=== PATIENT | male | born 1970 | race Caucasian/White ===

== ENCOUNTER 2016-09-26 13:54 | Emergency (ER) | payer OTHER ==
[2016-09-26 13:59] VITALS: RESP 18
[2016-09-26] MEDS ORDERED: ONDANSETRON 4 MG/2 ML VIAL IVP ONE (15:01)
[2016-09-26] MEDS ORDERED: NS 1,000 ML IV ONE ×2 (15:01)
[2016-09-26 15:07] LABS: % IMMATURE GRANULYOCYTES 0.2 % (0.0-1.1); ABSOLUTE IMMATURE GRANULOCYTES 0.01 10^3/uL (0.00-0.10); ADD DIFF? NO; ADD MORPH? NO; ADD SCAN? NO; ATYPICAL LYMPHOCYTE FLAG 0 (0-99); FRAGMENT RBC FLAG 0 (0-99); HEMOGLOBIN 15.8 g/dL (13.7-17.5); LEFT SHIFT FLG 0 (0-99); LIPEMIA HEMOLYSIS FLAG 90 (0-99); MEAN CELL HEMOGLOBIN 33.5 pg (27.9-34.1); MEAN CELL HEMOGLOBIN CONCENTR. 35.9 g/dL (32.4-36.7); MEAN CELL VOLUME 93.4 fL (81.5-99.8); MEAN PLATELET VOLUME 9.5 fL (8.7-11.7); PLATELET CLUMPS FLAG 0 (0-99); PLATELET COUNT 158 10^3/uL (150-400); RED BLOOD CELL COUNT 4.71 10^6/uL (4.40-6.38)
--- NOTE | 2016-09-26 15:08 | EDPHY ---
H & P Time Seen by Provider: 09/26/16 14:39 HPI/ROS: CHIEF COMPLAINT: Nausea and fever HISTORY OF PRESENT ILLNESS: This 46-year-old man presents with nausea fever and some lower abdominal cramping. Symptoms started yesterday at 7:00 p.m. with fever and chills. Today he has not had vomiting or diarrhea but has had pretty much nothing to eat because he has nausea. Pain radiates to his mid low back but is not associated with urinary symptoms. No cough or shortness of breath. No headache or neck pain. Recent travel to [place] with 2 tick bites but no overseas travel. REVIEW OF SYSTEMS: Eye: no change in vision ENT: no sore throat Cardiac: no chest pain or syncope Pulmonary: no cough or SOB Abdomen: HPI Musculoskeletal: no back pain Skin: no rash Neuro: no headache Constitutional: HPI : no urinary symptoms A comprehensive 10 point review of systems is otherwise negative aside from elements mentioned in the history of present illness. PAST MEDICAL HISTORY: Negative Social history: No foreign travel or IV drugs General Appearance: Alert and conversant, cooperative. Eyes: No scleral icterus. ENT, Mouth: Normal mucous membranes. Respiratory: Normal respiratory effort, breath sounds equal, lungs are clear to auscultation. Cardiovascular: Regular rate and rhythm. Gastrointestinal: Abdomen is soft and non tender. No rebound or guarding, normal bowel sounds. Neurological: Alert and oriented x3. Normally conversant. Face symmetric, normal movement and sensation in all extremities. Skin: Warm and dry, no rashes. Scattered bug bites in the lower extremities but no evidence of cellulitis. Musculoskeletal: No peripheral edema and no joint swelling. Normal range of motion of the neck, supple, no meningeal signs. Psychiatric: Not agitated. Emergency Department course/MDM: Normal saline 2 L IV and Zofran 4 mg IV for nausea. He had a temperature of a 101.8degrees at [facility]. Laboratory, urinalysis. 1620: Re-evaluated, labs and Infectious Disease recommendation discussed, abdomen is soft and nontender at this time. Plan to discharge if takes p.o. Discussed in detail with Dr. Johnny Britt recommends no empiric treatment for any type of tick borne diseases. Negative urinalysis. Does not have signs of meningitis and I think serious bacterial infection is unlikely. Not tender over McBurney's point. Liver function tests noted, can be recheck. Smoking Status: Never smoked Constitutional: Initial Vital Signs Temperature (C) 37.5 C 09/26/16 13:55 Heart Rate 92 09/26/16 13:55 Respiratory Rate 18 09/26/16 13:55 Blood Pressure 129/101 H 09/26/16 13:55 O2 Sat (%) 96 09/26/16 13:55 O2 Delivery Mode Room Air Allergies/Adverse Reactions: acetaminophen [From Darvocet-N] Allergy (Mild, Verified 09/26/16 13:59) felt feverish propoxyphene [From Darvocet-N] Allergy (Mild, Verified 09/26/16 13:59) felt feverish Home Medications: Medication Instructions Recorded Ondansetron Odt [Zofran Odt] 4 mg PO Q4PRN #6 tab 09/26/16 Medical Decision Making Consult/Admit Bed Type: [place] [address] - Data Points Laboratory Results: Laboratory Results 09/26/16 14:45 09/26/16 14:45 09/26/16 09/26/16 09/26/16 16:10 14:45 14:45 WBC 4.09 10^3/uL 10^3/uL (3.80-9.50) RBC 4.71 10^6/uL 10^6/uL (4.40-6.38) Hgb 15.8 g/dL g/dL (13.7-17.5) Hct 44.0 % % (40.0-51.0) MCV 93.4 fL fL (81.5-99.8) MCH 33.5 pg pg (27.9-34.1) MCHC 35.9 g/dL g/dL (32.4-36.7) RDW 12.0 % % (11.5-15.2) Plt Count 158 10^3/uL 10^3/uL (150-400) MPV 9.5 fL fL (8.7-11.7) Neut % (Auto) 77.5 % H % (39.3-74.2) Lymph % (Auto) 13.0 % L % (15.0-45.0) King % (Auto) 8.6 % % (4.5-13.0) Eos % (Auto) 0.0 % L % (0.6-7.6) Baso % (Auto) 0.7 % % (0.3-1.7) Nucleat RBC Rel Count 0.0 % % (0.0-0.2) Absolute Neuts (auto) 3.17 10^3/uL 10^3/uL (1.70-6.50) Absolute Lymphs (auto) 0.53 10^3/uL L 10^3/uL (1.00-3.00) Absolute Monos (auto) 0.35 10^3/uL 10^3/uL (0.30-0.80) Absolute Eos (auto) 0.00 10^3/uL L 10^3/uL (0.03-0.40) Absolute Basos (auto) 0.03 10^3/uL 10^3/uL (0.02-0.10) Absolute Nucleated RBC 0.00 10^3/uL 10^3/uL (0-0.01) Immature Gran % 0.2 % % (0.0-1.1) Immature Gran # 0.01 10^3/uL 10^3/uL (0.00-0.10) Sodium 133 mEq/L L mEq/L (134-144) Potassium 4.0 mEq/L mEq/L (3.5-5.2) Chloride 101 mEq/L mEq/L (97-110) Carbon Dioxide 22 mEq/l mEq/l (22-31) Anion Gap 10 mEq/L mEq/L (8-16) BUN 12 mg/dL mg/dL (7-23) Creatinine 1.0 mg/dL mg/dL (0.7-1.3) Estimated GFR > 60 Glucose 94 mg/dL mg/dL (70-100) Calcium 9.6 mg/dL mg/dL (8.5-10.4) Total Bilirubin 1.0 mg/dL mg/dL (0.1-1.4) Conjugated Bilirubin 0.4 mg/dL mg/dL (0.0-0.5) Unconjugated Bilirubin 0.6 mg/dL mg/dL (0.0-1.1) AST 92 IU/L H IU/L (17-59) ALT 107 IU/L H IU/L (21-72) Alkaline Phosphatase 96 IU/L IU/L (38-126) Total Protein 7.2 g/dL g/dL (6.3-8.2) Albumin 4.3 g/dL g/dL (3.5-5.0) Lipase 113.0 IU/L IU/L (23-300) Urine Color YELLOW Urine Appearance CLEAR Urine pH 7.0 (5.0-7.5) Ur Specific [place] 1.021 (1.002-1.030) Urine Protein 1+ H (NEGATIVE) Urine Ketones 1+ H (NEGATIVE) Urine Blood NEGATIVE (NEGATIVE) Urine Nitrate NEGATIVE (NEGATIVE) Urine Bilirubin NEGATIVE (NEGATIVE) Urine Urobilinogen NEGATIVE EU EU (0.2-1.0) Ur Leukocyte Esterase NEGATIVE (NEGATIVE) Urine RBC 1-3 /hpf /hpf (0-3) Urine WBC 1-3 /hpf /hpf (0-3) Ur Epithelial Cells NONE SEEN /lpf /lpf (NONE-1+) Urine Mucus TRACE /lpf /lpf (NONE-1+) Urine Glucose NEGATIVE (NEGATIVE) Medications Given: Discontinued Medications Sodium Chloride (Ns) 1,000 mls @ 0 mls/hr IV ONCE ONE; Wide Open PRN Reason: Protocol Stop: 09/26/16 15:02 Last Admin: 09/26/16 14:40 Dose: 1,000 mls Sodium Chloride (Ns) 1,000 mls @ 0 mls/hr IV ONCE ONE; Wide Open PRN Reason: Protocol Stop: 09/26/16 15:02 Last Admin: 09/26/16 15:35 Dose: 1,000 mls Ibuprofen (Motrin) 600 mg PO EDNOW ONE Stop: 09/26/16 16:25 Last Admin: 09/26/16 17:12 Dose: Not Given Ondansetron HCl (Zofran) 4 mg IVP EDNOW ONE Stop: 09/26/16 15:02 Last Admin: 09/26/16 15:36 Dose: 4 mg Departure - Departure Disposition: Home, Routine, Self-Care Clinical Impression: Viral syndrome, Abdominal pain Condition: Good Instructions: Dehydration (ED), Viral Syndrome (ED) Additional Instructions: Primary care referrals given including Dr. Edmond who was on-call for the ED today. You need to return to the emergency department immediately if you develop worsening or severe pain, fever, vomiting or you are not completely better in 8- 12 hours. Referrals: Aida Edmond DO [Doctor of Osteopathy] - As per Instructions Rene Naik MD [[facility] Primary Care Provider] - As per Instructions Prescriptions: Ondansetron Odt [Zofran Odt] 4 mg PO Q4PRN #6 tab
[2016-09-26 15:14] LABS: ALBUMIN 4.3 g/dL (3.5-5.0); ALKALINE PHOSPHATASE 96 IU/L (38-126); ANION GAP 10 mEq/L (8-16); ASPARTATE AMINOTRANSFERASE 92 IU/L (17-59); BILIRUBIN-UNCONJUGATED 0.6 mg/dL (0.0-1.1); CALCIUM 9.6 mg/dL (8.5-10.4); CARBON DIOXIDE 22 mEq/l (22-31); CHLORIDE 101 mEq/L (97-110); GLOMERULAR FILTRATION RATE > 60; GLUCOSE 94 mg/dL (70-100); SODIUM 133 mEq/L (134-144); TOTAL PROTEIN 7.2 g/dL (6.3-8.2)
[2016-09-26 15:15] LABS: ALANINE AMINOTRANSFERASE 107 IU/L (21-72); BILIRUBIN-CONJUGATED 0.4 mg/dL (0.0-0.5)
[2016-09-26] MEDS ORDERED: IBUPROFEN 600 MG TAB PO ONE (16:24)
[2016-09-26 16:29] LABS: COLOR YELLOW; LEUKOCYTE ESTERASE,URINE NEGATIVE (NEGATIVE); NITRITE,URINE NEGATIVE (NEGATIVE)
[2016-09-26 16:32] LABS: MUCUS TRACE /lpf (NONE-1+)
[2016-09-26 16:58] VITALS: BP 131/87; PULSE 80; TEMP 100.4; O2SAT 95
== END 2016-09-26 16:58 | disposition home or self-care (01) ==
DX: R10.9 Unspecified abdominal pain (principal); B34.9 Viral infection, unspecified
CPT/HCPCS: 96374; J2405

== ENCOUNTER 2016-10-14 08:04 | Emergency (ER) | payer OTHER ==
--- NOTE | 2016-10-14 08:24 | EDPHY ---
HPI/HX/ROS/PE/MDM Narrative: CHIEF COMPLAINT: Possible allergic reaction. HISTORY OF PRESENT ILLNESS: This patient is a 46 year old male arriving via EMS complaining of a possible allergic reaction of unknown etiology onset this morning during a run. He states that near the end of his run, his hand began to itch badly. Upon returning home, he states he took a warm shower and the itching spread to his back, legs, and abdomen, and he began to fee lightheaded. He reports he felt as though he had a "knot in his throat", and may have passed out on his bed, and when he awoke, he was increasingly lightheaded and felt as though the room was spinning. At this point, he states he called EMS. He states he believes EMS crews administered Benadryl in route. He denies current shortness of breath. No fever, chills, chest pain, shortness of breath, palpitations, vomiting, diarrhea , urinary complaints, headache, lightheadedness. REVIEW OF SYSTEMS: Aside from elements discussed in the HPI, a comprehensive 10-point review of systems was reviewed and is negative. PAST MEDICAL HISTORY: Denies. (Taking Naltrexone) SOCIAL HISTORY: Lives in [place]. VITAL SIGNS: Reviewed by me GENERAL: Well-developed, well-nourished, resting comfortably in no respiratory distress. HEENT: Atraumatic. No angioedema. Eyes: Eyelid edema. No icterus, no injection. Mouth: moist mucous membranes. No erythema or lesions. Neck: supple with no adenopathy. LUNGS: Distant breath sounds. Clear to auscultation bilaterally, no wheezes, rhonchi or rales. CARDIAC: Regular rate and rhythm, no rubs, murmurs or gallops. ABDOMEN: Soft, nontender, nondistended, bowel sounds normal. BACK: No CVA tenderness. EXTREMITIES: No trauma. No edema. Range of motion is normal throughout. NEURO: Alert and oriented, grossly nonfocal. SKIN: Diffuse urticaria to back, abdomen. Warm and dry. PSYCHIATRIC: Normal mentation, no agitation. Portions of this note were transcribed by a medical underwriter. I personally performed a history, physical exam, medical decision making, and confirmed accuracy of information the transcribed note. ED Course: This patient is a 46 year old male presenting with diffuse urticaria to his chest, back, and abdomen following possible exposure to unknown allergen. No shortness of breath, angioedema. Plan to administer 50mg IV Zantac, 125mg IV methylprednisone, Albuterol nebulizer for symptom relief. Reassessed patient. He is feeling improved. Plan to discharge home in good condition. Follow up with primary care as needed. Return precautions discussed. The patient is comfortable with this plan. MDM: Diff dx considered included but not limited to allergic reaction, exercised induced histamine release, dehydration, food allergy, contact dermatitis, angioedema. - Data Points Medications Given: Discontinued Medications Albuterol (Proventil Neb) 3 ml IH EDNOW ONE Stop: 10/14/16 08:27 Last Admin: 10/14/16 08:59 Dose: 3 ml Methylprednisolone Sodium Succinate (Solu-Medrol) 125 mg IVP EDNOW ONE Stop: 10/14/16 08:27 Last Admin: 10/14/16 09:00 Dose: 125 mg Ranitidine HCl (Zantac) 50 mg IVP EDNOW ONE Stop: 10/14/16 08:27 Last Admin: 10/14/16 09:00 Dose: 50 mg General Time Seen by Provider: 10/14/16 08:12 Initial Vital Signs: Initial Vital Signs Temperature (C) 36.5 C 10/14/16 08:18 Heart Rate 73 10/14/16 08:18 Respiratory Rate 14 10/14/16 08:18 Blood Pressure 97/72 L 10/14/16 08:18 O2 Delivery Mode Room Air Allergies/Adverse Reactions: acetaminophen [From Darvocet-N] Allergy (Mild, Verified 09/26/16 13:59) felt feverish propoxyphene [From Darvocet-N] Allergy (Mild, Verified 09/26/16 13:59) felt feverish Home Medications: Medication Instructions Recorded Ondansetron Odt [Zofran Odt] 4 mg PO Q4PRN #6 tab 09/26/16 EPINEPHRINE [EPIPEN] 0.3 mg IM ONCE #2 syr 10/14/16 Naltrexone HCl 10/14/16 predniSONE 40 mg PO DAILY #6 tab 10/14/16 Departure - Departure Disposition: Home, Routine, Self-Care Clinical Impression: Hives Allergic reaction Qualifiers: Encounter type: initial encounter Qualified Code(s): T78.40XA - Allergy, unspecified, initial encounter Condition: Good Instructions: Urticaria (ED), Anaphylaxis (ED), General Allergic Reaction (ED) Additional Instructions: There are 4 medications used to treat allergic reactions. #1. The first is epinephrine. Please use the epinephrine pen in the future if you develop acute swelling, throat tightness, shortness of breath, or severe rash in the setting of allergic reaction. #2. The second type of medication are antihistamines. The most common antihistamine is diphenhydramine (Benadryl). Dose is 25-50 mg every 6-8 hours as needed for itching and rash. Diphenhydramine can be sedating. Another type of antihistamine is loratadine (Claritin). This is taken once a day. It is not sedating. Repeat doses of antihistamines may be needed as the hives will come and go over the next several days. You may notice that the hives are worse after exposure to heat, warm showers, or exertion. #3. The third medication is Pepcid or Tagament which are another type of an antihistamine. Take as directed daily for another 3 days. This should be taken on a regular basis. #4. The fourth medication is prednisone, which is a steroid. The dose is 40 mg a day x3 doses. Please take this as instructed. #5. Return to emergency department or seek care urgently if severe shortness of breath develops, swelling of the lips, eyelids, or sensation that the throat is closing. Please follow up with your primary care physician as needed. We have referred you to our primary care physician information systems auditor today, Dr. Radu Herron. His office can be reached at . Referrals: NONE *PRIMARY CARE P,. [Primary Care Provider] - As per Instructions Prescriptions: EPINEPHRINE [EPIPEN] 0.3 mg IM ONCE #2 syr predniSONE 40 mg PO DAILY #6 tab Report Scribed for: Vicenta Fay Report Scribed by: Linsey Rojas Date of Report: 10/14/16 Time of Report: 08:24
[2016-10-14] MEDS ORDERED: ALBUTEROL 3 ML DEYVIAL IH ONE (08:26)
[2016-10-14] MEDS ORDERED: RANITIDINE 50 MG/2 ML VIAL IVP ONE (08:26)
[2016-10-14] MEDS ORDERED: methylPREDNISolone SOD SUCC 125 MG/2 ML VIAL IVP ONE (08:26)
[2016-10-14 09:34] VITALS: BP 110/78; PULSE 75; RESP 17; TEMP 97.9; O2SAT 98
== END 2016-10-14 09:33 | disposition home or self-care (01) ==
LOC: EDUNIT#
DX: L50.0 Allergic urticaria (principal)
CPT/HCPCS: 96374; J2780